=== PATIENT | female | born 1995 | race American Indian/Alaskan Native ===

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

== ENCOUNTER 2018-06-15 11:05 | Emergency (ER) | payer BC ==
--- NOTE | 2018-06-15 12:12 | Emergency Department Report ---
ED General Adult HPI - General Chief complaint: Urogenital-Female Stated complaint: YEAST INFECTION Time Seen by Provider: 06/15/18 12:12 Source: patient Mode of arrival: Ambulatory Limitations: No Limitations - History of Present Illness Initial comments: Patient is a 22-year-old femalewith past medical history who presents with white discharge assessment: From last couple days. Patient states that she is sexually active and she is not having any vaginal spotting or bleeding but she noticed thick white discharge. She is concerned that she may have a yeast infection. She has no dysuria or no pelvic pain. She says the discharge is moderate and nothing makes it better or worse. Severity scale (0 -10): 0 - Related Data Previous Rx's Medication Instructions Recorded Last Taken Type Acetaminophen/Codeine [Tylenol #3] 1 tab PO Q6H PRN #8 tab 12/06/16 Unknown Rx Amoxicillin 500 mg PO BID #20 capsule 12/06/16 Unknown Rx Ibuprofen [Motrin] 600 mg PO Q8H PRN #15 tablet 12/06/16 Unknown Rx Fluconazole [Diflucan TAB] 150 mg PO ONCE #1 tablet 12/12/16 Unknown Rx Allergies Allergy/AdvReac Type Severity Reaction Status Date / Time No Known Allergies Allergy Verified 08/10/13 01:31 ED Review of Systems ROS: Stated complaint: YEAST INFECTION Other details as noted in HPI Constitutional: denies: chills, fever Eyes: denies: eye pain, eye discharge, vision change ENT: denies: ear pain, throat pain Respiratory: denies: cough, shortness of breath, wheezing Cardiovascular: denies: chest pain, palpitations Endocrine: no symptoms reported Gastrointestinal: denies: abdominal pain, nausea, diarrhea Genitourinary: discharge. denies: urgency, dysuria Musculoskeletal: denies: back pain, joint swelling, arthralgia Skin: denies: rash, lesions Neurological: denies: headache, weakness, paresthesias Psychiatric: denies: anxiety, depression Hematological/Lymphatic: denies: easy bleeding, easy bruising ED Past Medical Hx - Past Medical History Previous Medical History?: No - Surgical History Past Surgical History?: No - Social History Smoking Status: Never Smoker Substance Use Type: Alcohol - Medications Home Medications: Home Medications Medication Instructions Recorded Confirmed Last Taken Type Acetaminophen/Codeine [Tylenol #3] 1 tab PO Q6H PRN #8 tab 12/06/16 Unknown Rx Amoxicillin 500 mg PO BID #20 capsule 12/06/16 Unknown Rx Ibuprofen [Motrin] 600 mg PO Q8H PRN #15 tablet 12/06/16 Unknown Rx Fluconazole [Diflucan TAB] 150 mg PO ONCE #1 tablet 12/12/16 Unknown Rx ED Physical Exam - General Limitations: No Limitations General appearance: alert, in no apparent distress - Head Head exam: Present: atraumatic, normocephalic - Eye Eye exam: Present: normal appearance - ENT ENT exam: Present: mucous membranes moist - Neck Neck exam: Present: normal inspection - Respiratory Respiratory exam: Present: normal lung sounds bilaterally. Absent: respiratory distress - Cardiovascular Cardiovascular Exam: Present: regular rate, normal rhythm. Absent: systolic murmur, diastolic murmur, rubs, gallop - GI/Abdominal GI/Abdominal exam: Present: soft, normal bowel sounds - Extremities Exam Extremities exam: Present: normal inspection - Back Exam Back exam: Present: normal inspection - Neurological Exam Neurological exam: Present: alert, oriented X3 - Psychiatric Psychiatric exam: Present: normal affect, normal mood - Skin Skin exam: Present: warm, dry, intact, normal color. Absent: rash ED Course Vital Signs 06/15/18 11:09 Temperature 98.3 F Pulse Rate 89 Respiratory 18 Rate Blood Pressure 137/90 O2 Sat by Pulse 100 Oximetry ED Medical Decision Making - Lab Data Lab Results 06/15/18 Range/Units 12:06 Urine Color Yellow (Yellow) Urine Turbidity Clear (Clear) Urine pH 7.0 (5.0-7.0) Ur Specific [place] 1.015 (1.003-1.030) Urine Protein <15 mg/dl (Negative) mg/dL Urine Glucose (UA) Neg (Negative) mg/dL Urine Ketones Neg (Negative) mg/dL Urine Blood Neg (Negative) Urine Nitrite Neg (Negative) Ur Reducing Substances Not Reportable Urine Bilirubin Neg (Negative) Urine Ictotest Not Reportable Urine Urobilinogen 2.0 (<2.0) mg/dL Ur Leukocyte Esterase Tr (Negative) Urine WBC (Auto) 1.0 (0.0-6.0) /HPF Urine RBC (Auto) 1.0 (0.0-6.0) /HPF U Epithel Cells (Auto) 2.0 (0-13.0) /HPF Urine Mucus Few /HPF Urine HCG, Qual Negative (Negative) - Medical Decision Making Chief medical diagnosis: Yeast infection Differential diagnosis: , UTI All urinalysis and then I will treat patient for STDs and yeast infection. Patient's urinalysis was unremarkable I will send patient home discussed plan with patient and patient agrees to plan additional verbal discharge instructions were given. Critical care attestation.: If time is entered above; I have spent that time in minutes in the direct care of this critically ill patient, excluding procedure time. ED Disposition Clinical Impression: Yeast infection Disposition: DC-01 TO HOME OR SELFCARE Is pt being admited?: No Does the pt Need Aspirin: No Condition: Stable Instructions: Vulvovaginal Candidiasis (ED) Referrals: NAVID ESCAMILLA MD [Primary Care Provider] - 3-5 Days
[2018-06-15 12:29] LABS: Bilirubin,Urine NEG (Negative); Blood,Urine NEG (Negative); Color,Urine Yellow (Yellow); HCG Qualitative,Urine Negative (Negative); Mucus,Urine FEW /HPF; Protein,Urine <15 mg/dL mg/dL (Negative)
[2018-06-15] MEDS ORDERED: ROCEPHIN IM ONE (12:36)
[2018-06-15] MEDS ORDERED: XYLOCAINE 1% MPF 5 mL INFILTRATI ONE (12:36)
[2018-06-15] MEDS ORDERED: ZITHROMAX PO ONE (12:36)
[2018-06-15] MEDS: DIFLUCAN PO ONE ×2 (12:53→13:37)
[2018-06-15 13:40] VITALS: BP 122/78
== END 2018-06-15 13:40 | disposition home or self-care (01) ==
LOC: ED 11:05
DX: B37.9 Candidiasis, unspecified (principal)
CPT/HCPCS: 81001; 81025; 96372; 99283; J0696

== ENCOUNTER 2019-05-24 16:54 | Emergency (ER) | payer BC ==
[2019-05-24 17:03] VITALS: BP 99/78
--- NOTE | 2019-05-24 19:34 | Emergency Department Report ---
ED Rash HPI - HPI Chief Complaint: Allergic Reaction Stated Complaint: ALLERGIC REACTION Time Seen by Provider: 05/24/19 19:29 Duration: 2 Days Location: Head (around mouth) Suspected Cause: Unknown Rash Symptoms: No Itching, No Facial Swelling, No Tongue/Oral Swelling, No Breathing Difficulties, No Choking Sensation, No Wheezing/Dyspnea, No Peeling, No Blistering, No Fever, No Lightheaded, No Malaise, No Myalgias Severity: moderate Other History: This is a 23-year-old Afro-[place] female who presents to the emergency room with a rash around mouth for 2 days. 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 States initially noticed 1 bump to left chin Monday which progressively spread to upper lip yesterday. She reports noticing redness surrounding rash and increasing burning intensity. ED Review of Systems ROS: Stated complaint: ALLERGIC REACTION Other details as noted in HPI Constitutional: denies: chills, fever ENT: denies: ear pain, throat pain Respiratory: denies: cough, shortness of breath, wheezing Cardiovascular: denies: chest pain, palpitations Gastrointestinal: denies: abdominal pain, nausea, diarrhea Skin: rash. denies: lesions Neurological: denies: headache, weakness, paresthesias Psychiatric: denies: anxiety, depression ED Past Medical Hx - Past Medical History Previous Medical History?: No - Surgical History Past Surgical History?: No - Social History Smoking Status: Never Smoker Substance Use Type: None - Medications Home Medications: Home Medications Medication Instructions Recorded Confirmed Last Taken Type Acetaminophen/Codeine [Tylenol #3] 1 tab PO Q6H PRN #8 tab 12/06/16 Unknown Rx Amoxicillin 500 mg PO BID #20 capsule 12/06/16 Unknown Rx Ibuprofen [Motrin] 600 mg PO Q8H PRN #15 tablet 12/06/16 Unknown Rx Fluconazole [Diflucan TAB] 150 mg PO ONCE #1 tablet 12/12/16 Unknown Rx Clindamycin [Clindamycin CAP] 300 mg PO Q8H #21 cap 05/24/19 Unknown Rx methylPREDNISolone [Medrol 4MG 4 mg PO DAILY #1 tab.ds.pk 05/24/19 Unknown Rx DOSEPAK (21 tabs)] Rash Exam - Exam General: Vital signs noted. No distress. Alert and acting appropriately. HEENT: No Periorbital Edema, No Conjuctival Injection, No Chemosis, No Perioral Edema, No Tongue Edema, No Uvular Edema (uvula midline), No Compromised Airway, No Drooling Lungs: Yes Good Air Exchange (Normal Breath Sounds), No Wheezes, No Ronchi, No Stridor, No Cough, No Labored Respirations, No Retractions, No Use of Accessory Muscles, No Other Abnormal Lung Sounds Heart: Yes Regular, No Murmur Skin: Yes Maculopapular Rash (erythematous and maculopapular rash to the right upper lid and left lower lip, ttp, erythema surrounding rash), Yes Erythema, No Urticarial Rash, No Morbilliform rash, No Bulla(e), No Excoriations, No Weeping, No Tenderness, No Edema, No Encrustations ED Course Vital Signs 05/24/19 17:02 Temperature 98.4 F Pulse Rate 90 Respiratory 13 Rate Blood Pressure 99/78 [Left] O2 Sat by Pulse 100 Oximetry ED Medical Decision Making - Medical Decision Making This is a 23-year-old female presents with rash to face for 2 days. Vitals are stable inpatient in no acute distress. Rash with cellulitis upper lip and lower lip. Tolerated by mouth trial. Start steroids and antibiotics. Continue antihistamines. Discharge home with prompt outpatient PCP follow up; return precautions discussed. Critical care attestation.: If time is entered above; I have spent that time in minutes in the direct care of this critically ill patient, excluding procedure time. ED Disposition Clinical Impression: Rash and nonspecific skin eruption, Cellulitis of face Disposition: - TO HOME OR SELFCARE Is pt being admited?: No Condition: Stable Instructions: Cellulitis (ED), Acute Rash (ED) Additional Instructions: Complete antibiotics as prescribed. Continue taking and Benadryl for symptomatic relief. Prescriptions: Clindamycin [Clindamycin CAP] 300 mg PO Q8H #21 cap methylPREDNISolone [Medrol 4MG DOSEPAK (21 tabs)] 4 mg PO DAILY #1 tab.ds.pk Referrals: [facility] [Provider Group] - 3-5 Days CHER TARANGO MD [Staff Physician] - 3-5 Days [facility] [Provider Group] - 3-5 Days Forms: Work/School Release Form(ED) Time of Disposition: 19:37
== END 2019-05-24 19:30 | disposition home or self-care (01) ==
LOC: ED 16:54
DX: L03.211 Cellulitis of face (principal); R21 Rash and other nonspecific skin eruption
CPT/HCPCS: 99281